=== PATIENT | male | born 1940 | race Two or more races ===

== ENCOUNTER → 2020-03-27 | Outpatient (CLI) | payer MEDICARE, OTHER ==
--- NOTE | 2020-03-27 15:04 | US ---
EXAMINATION TYPE: US scrotum with doppler. Grayscale and color Doppler Duplex imaging performed of luis dudley scrotum. DATE OF EXAM: 03/27/2020 COMPARISON: CLINICAL HISTORY: N40.1 Benign prostatic hyperplasia with lower urin. Right testicle pain that comes and goes. No significant injury. EXAM MEASUREMENTS: TESTICLES: Right Testicle: 5.0 x 3.7 x 2.9 cm Left Testicle: 5.2 x 3.6 x 2.6 cm EPIDIDYMIS HEAD: Right Epididymis: 0.9 x 1.0 x 0.7 cm Left Epididymis: 1.0 x 1.1 x 0.8 cm Doppler performed to assess for testicular vascularity; bilateral color flow and waveforms are seen. Testicular echotexture is homogenous and symmetric Presence of hydroceles: no Presence of varicoceles: left side, distention of the veins is noted on Valsalva IMPRESSION: Left-sided varicocele is mild.
== END | disposition home or self-care (01) ==
LOC: RADUSWWP 14:02
PROVIDERS: ATTEND Family Medicine
DX: I86.1 Scrotal varices (principal); N40.1 Benign prostatic hyperplasia with lower urinary tract symptoms
CPT/HCPCS: 76870; 93975

== ENCOUNTER 2021-05-12 20:14 | Emergency (ER) | payer MEDICARE, OTHER ==
[2021-05-12 20:31] VITALS: BP 134/83; PULSE 58; RESP 16; TEMP 98
--- NOTE | 2021-05-12 21:21 | XR ---
EXAMINATION TYPE: XR hand complete LT DATE OF EXAM: 05/12/2021 COMPARISON: NONE HISTORY: Thumb pain TECHNIQUE: 3 views FINDINGS: There is some narrowing of the IP joint spaces. There is spurring at the first carpometacar pal joint. I see no fracture nor dislocation. There are no erosions. The thumb appears intact. IMPRESSION: There is some osteoarthritis. No fracture seen.
[2021-05-12] MEDS ORDERED: ACET/COD 300 MG/30 MG STARTER PACK 6 TAB BTL PO STA (21:39)
--- NOTE | 2021-05-12 21:39 | ED ---
Upper Extremity HPI - General Chief Complaint: Extremity Injury, Upper Stated Complaint: Thumb Injury Time Seen by Provider: 05/12/21 20:38 Source: patient, RN notes reviewed Mode of arrival: ambulatory Limitations: no limitations - History of Present Illness Initial Comments: 80-year-old male present emergency from chief complaint left thumb pain. Lissett ent states she's been having increasing pain discomfort states that feels like it's popping, snapping at the joint. Patient has no paresthesias no trauma no fevers or chills. - Related Data Home Medications Medication Instructions Recorded Confirmed Ezetimibe [Zetia] 10 mg PO DAILY 04/06/14 04/06/14 Metoprolol Succinate [Toprol XL] 50 mg PO DAILY 04/06/14 04/06/14 Pravastatin Sodium [Pravachol] 40 mg PO DAILY 04/06/14 04/06/14 amLODIPine [Norvasc] 5 mg PO DAILY 04/06/14 04/06/14 Previous Rx's Medication Instructions Recorded Cephalexin [Keflex] 500 mg PO Q6HR #20 cap 04/06/14 Hydrocodone/Acetaminophen [[place] 1 each PO Q6HR PRN #30 tab 04/06/14 5-325] predniSONE 50 mg PO DAILY #5 tab 05/12/21 Allergies Allergy/AdvReac Type Severity Reaction Status Date / Time aspirin AdvReac Unknown Verified 05/12/21 20:30 Review of Systems ROS Statement: Those systems with pertinent positive or pertinent negative responses have been documented in the HPI. ROS Other: All systems not noted in ROS Statement are negative. Past Medical History Past Medical History: Hypertension History of Any Multi-Drug Resistant Organisms: None Reported Past Surgical History: No Surgical Hx Reported Past Psychological History: No Psychological Hx Reported Smoking Status: Never smoker Past Alcohol Use History: None Reported Past Drug Use History: None Reported General Exam Limitations: no limitations General appearance: alert, in no apparent distress Head exam: Present: atraumatic, normocephalic, normal inspection Respiratory exam: Present: normal lung sounds bilaterally. Absent: respiratory distress, wheezes, rales, rhonchi, stridor Cardiovascular Exam: Present: regular rate, normal rhythm, normal heart sounds. Absent: systolic murmur, diastolic murmur, rubs, gallop, clicks Extremities exam: Present: other (Left thumb there is mild tenderness no segmental and erythema neurovascular intact Refill less than 2 seconds some noted popping with joint movement at the interphalangeal joint) Course Vital Signs 05/12/21 20:28 Temperature 98.0 F Pulse Rate 58 L Respiratory 16 Rate Blood Pressure 134/83 O2 Sat by Pulse 98 Oximetry Medical Decision Making - Medical Decision Making X-ray shows evidence of loss arthritis. Patient has left thumb tendinitis, arthritis will follow-up with orthopedics return parameters were discussed. Disposition Clinical Impression: Osteoarthritis of left thumb, Tendinitis of thumb Disposition: HOME SELF-CARE Condition: Stable Instructions (If sedation given, give patient instructions): Arthralgia (ED) Additional Instructions: Please return to the Emergency Department if symptoms worsen or any other concerns. Prescriptions: predniSONE 50 mg PO DAILY #5 tab Is patient prescribed a controlled substance at d/c from ED?: No Referrals: Felipe Marc III, MD [Primary Care Provider] - 1-2 days Gonzalo Dallas DO [Doctor of Osteopathic Medicine] - 1-2 days Time of Disposition: 21:38
== END 2021-05-12 22:01 | disposition home or self-care (01) ==
LOC: EC 20:14
DX: M19.042 Primary osteoarthritis, left hand (principal); M77.9 Enthesopathy, unspecified; I10 Essential (primary) hypertension; Z88.6 Allergy status to analgesic agent; Z79.899 Other long term (current) drug therapy
CPT/HCPCS: 99283

== ENCOUNTER 2022-03-29 10:09 | Emergency (ER) | payer MEDICARE, OTHER ==
[2022-03-29 10:46] VITALS: RESP 18; TEMP 98.2
[2022-03-29 11:31] LABS: Basophils % (A) 0 %; Eosinophils # (A) 0.2 k/uL (0-0.7); Eosinophils % (A) 1 %; HCT 51.4 % (39.0-53.0); Lymphocytes # (A) 0.7 k/uL (1.0-4.8); Lymphocytes % (A) 6 %; MCH 30.9 pg (25.0-35.0); MCHC 33.2 g/dL (31.0-37.0); MCV 93.1 fL (80.0-100.0); Monocytes # (A) 0.6 k/uL (0-1.0); Monocytes % (A) 5 %; Neutrophils # (A) 9.8 k/uL (1.3-7.7); Neutrophils % (A) 87 %; Platelet Count 199 k/uL (150-450); RBC 5.52 m/uL (4.30-5.90); WBC 11.3 k/uL (3.8-10.6)
--- NOTE | 2022-03-29 11:39 | ED ---
General Adult HPI - General Chief complaint: Abdominal Pain Stated complaint: ABD Pain,Kidney stone Time Seen by Provider: 03/29/22 11:07 Source: patient Mode of arrival: ambulatory Limitations: no limitations - History of Present Illness Initial comments: Patient is an 81-year-old male presents the emergency room with complaints of left flank pain and urinary frequency ongoing for approximately 48 hours. He denies any previous kidney stone history. He denies any hematuria or dysuria. He denies any odor. He reports frequency but denies incomplete bladder emptying. He complains of some flushing yesterday but none today. He denies any fevers or chills. He reports nausea with one episode of emesis yesterday and some nausea earlier today but denies any at this time. He denies any episodes of diarrhea. He has a past medical history significant for hypertension, hyperlipidemia, and osteoarthritis. He denies any other complaints or concerns at this time. - Related Data Home Medications Medication Instructions Recorded Confirmed Ezetimibe [Zetia] 10 mg PO DAILY 04/06/14 04/06/14 Metoprolol Succinate [Toprol XL] 50 mg PO DAILY 04/06/14 04/06/14 Pravastatin Sodium [Pravachol] 40 mg PO DAILY 04/06/14 04/06/14 amLODIPine [Norvasc] 5 mg PO DAILY 04/06/14 04/06/14 Previous Rx's Medication Instructions Recorded Cephalexin [Keflex] 500 mg PO Q6HR #20 cap 04/06/14 Hydrocodone/Acetaminophen [[place] 1 each PO Q6HR PRN #30 tab 04/06/14 5-325] predniSONE 50 mg PO DAILY #5 tab 05/12/21 Ciprofloxacin HCl [Cipro] 500 mg PO Q12HR 7 Days #14 tab 03/29/22 Tamsulosin HCl [Flomax] 0.4 mg PO HS 30 Days #30 capsule 03/29/22 Allergies Allergy/AdvReac Type Severity Reaction Status Date / Time aspirin AdvReac Unknown Verified 03/29/22 10:46 Review of Systems ROS Statement: Those systems with pertinent positive or pertinent negative responses have been documented in the HPI. ROS Other: All systems not noted in ROS Statement are negative. Past Medical History Past Medical History: Chest Pain / Angina, Hypertension History of Any Multi-Drug Resistant Organisms: None Reported Past Surgical History: No Surgical Hx Reported Past Psychological History: No Psychological Hx Reported Smoking Status: Never smoker Past Alcohol Use History: None Reported Past Drug Use History: None Reported General Exam Limitations: no limitations Course Vital Signs 03/29/22 10:43 Temperature 98.2 F Pulse Rate 67 Respiratory 18 Rate Blood Pressure 133/77 O2 Sat by Pulse 97 Oximetry Medical Decision Making - Medical Decision Making High probability for renal stone versus pyelonephritis UTI given left flank CVA tenderness along with urinary frequency and nausea symptoms. Will check KUB, CBC, CMP and urinalysis. Denies any analgesic need at this time. KUB negative for acute processes including stone. Lead work reveals leukocytosis and mild acute kidney failure. Patient denies any previous kidney failure. Also requesting medication for pain. In the setting of acute kidney failure will give morphine for pain along with IV fluid bolus and check ultrasound of the kidneys and bladder. Ultrasound the kidneys and bladder show no evidence of hydronephrosis bilateral ureter jets without anomalies and bladder anechoic. Hematuria noted along with leukocytosis will treat for renal stones with Tylenol 3 for pain management. Will start on Flomax for stone and urinary frequency along with Cipro given mild leukocytosis and slight amount of bacteria in urine. Advised need for follow-up with urology. Discussed signs and symptoms of sepsis and obstruction and when to return to the emergency room. - Lab Data Result diagrams: 03/29/22 11:21 03/29/22 11:21 Lab Results 03/29/22 03/29/22 03/29/22 Range/Units 11:21 11:21 11:21 WBC 11.3 H (3.8-10.6) k/uL RBC 5.52 (4.30-5.90) m/uL Hgb 17.0 (13.0-17.5) gm/dL Hct 51.4 (39.0-53.0) % MCV 93.1 (80.0-100.0) fL MCH 30.9 (25.0-35.0) pg MCHC 33.2 (31.0-37.0) g/dL RDW 13.0 (11.5-15.5) % Plt Count 199 (150-450) k/uL MPV 7.0 Neutrophils % 87 % Lymphocytes % 6 % Monocytes % 5 % Eosinophils % 1 % Basophils % 0 % Neutrophils # 9.8 H (1.3-7.7) k/uL Lymphocytes # 0.7 L (1.0-4.8) k/uL Monocytes # 0.6 (0-1.0) k/uL Eosinophils # 0.2 (0-0.7) k/uL Basophils # 0.0 (0-0.2) k/uL Sodium 137 (137-145) mmol/L Potassium 4.7 (3.5-5.1) mmol/L Chloride 103 (98-107) mmol/L Carbon Dioxide 26 (22-30) mmol/L Anion Gap 8 mmol/L BUN 29 H (9-20) mg/dL Creatinine 1.54 H (0.66-1.25) mg/dL Est GFR (CKD-EPI)AfAm 48 (>60 ml/min/1.73 sqM) Est GFR (CKD-EPI)NonAf 42 (>60 ml/min/1.73 sqM) Glucose 124 H (74-99) mg/dL Calcium 9.4 (8.4-10.2) mg/dL Total Bilirubin 1.1 (0.2-1.3) mg/dL AST 21 (17-59) U/L ALT 16 (4-49) U/L Alkaline Phosphatase 76 (38-126) U/L Total Protein 7.1 (6.3-8.2) g/dL Albumin 4.4 (3.5-5.0) g/dL Urine Color Yellow Urine Appearance Clear (Clear) Urine pH 5.0 (5.0-8.0) Ur Specific [place] 1.029 (1.001-1.035) Urine Protein Trace H (Negative) Urine Glucose (UA) Negative (Negative) Urine Ketones 2+ H (Negative) Urine Blood Large H (Negative) Urine Nitrite Negative (Negative) Urine Bilirubin Negative (Negative) Urine Urobilinogen <2.0 (<2.0) mg/dL Ur Leukocyte Esterase Negative (Negative) Urine RBC 178 H (0-5) /hpf Urine WBC 3 (0-5) /hpf Urine Bacteria Rare H (None) /hpf Urine Mucus Rare H (None) /hpf Disposition Clinical Impression: Microscopic hematuria, UTI (urinary tract infection), Acute kidney failure Disposition: HOME SELF-CARE Condition: Stable Instructions (If sedation given, give patient instructions): Hematuria (ED), Urinary Tract Infection in Men (ED), Acute Kidney Injury (DC) Additional Instructions: Please drink plenty of fluids avoiding caffeinated products. Please complete course of antibiotic therapy and take Flomax once daily in the evening. Utilize Tylenol 3 starter pack as needed for pain. Please follow-up with urology for further evaluation and treatment of microscopic hematuria. If difficulty urinating or gross hematuria please return to the emergency room. Please follow- up with your primary care provider. Please return to the Emergency Department if symptoms worsen or any other concerns. Prescriptions: Ciprofloxacin HCl [Cipro] 500 mg PO Q12HR 7 Days #14 tab Tamsulosin HCl [Flomax] 0.4 mg PO HS 30 Days #30 capsule Is patient prescribed a controlled substance at d/c from ED?: No Referrals: Felipe Marc III, MD [Primary Care Provider] - 1-2 days Juve Coles MD [STAFF PHYSICIAN] - 1-2 days Time of Disposition: 14:10
--- NOTE | 2022-03-29 11:45 | XR ---
EXAMINATION TYPE: XR KUB DATE OF EXAM: 03/29/2022 COMPARISON: NONE HISTORY: Pain TECHNIQUE: Single supine KUB image of the abdomen is obtained FINDINGS: Small bowel demonstrates no evidence for dilatation or air fluid levels. Gas and fecal material is seen in non-distended colon. No convincing evidence for pneumoperitoneum. No unusual calcifications. The lung bases are clear. The osseous structures are intact. IMPRESSION: 1. Overall nonobstructive bowel gas pattern.
[2022-03-29 11:50] LABS: Albumin 4.4 g/dL (3.5-5.0); Calcium 9.4 mg/dL (8.4-10.2); Potassium 4.7 mmol/L (3.5-5.1); Total Bilirubin 1.1 mg/dL (0.2-1.3); Total Protein 7.1 g/dL (6.3-8.2)
[2022-03-29 12:11] LABS: Appearance,Urine Clear (Clear); Bacteria,Urine Rare /hpf; Bilirubin,Urine Negative (Negative); Blood,Urine Large (Negative); Color,Urine Yellow; Glucose,Urine (UA) Negative (Negative); Ketones,Urine 2+ (Negative); Leukocyte Esterase,Urine Negative (Negative); Mucus,Urine Rare /hpf; Nitrite,Urine Negative (Negative); Protein,Urine Trace (Negative); RBC,Urine 178 /hpf (0-5); Specific Gravity,Urine 1.029 (1.001-1.035); Urobilinogen,Urine <2.0 mg/dL (<2.0); WBC,Urine 3 /hpf (0-5)
[2022-03-29] MEDS ORDERED: SODIUM CHLORIDE 0.9% 1,000 ML IV STA (12:30)
[2022-03-29] MEDS ORDERED: MORPHINE SULFATE 2 MG/ML SYRINGE IVP STA (12:30)
--- NOTE | 2022-03-29 13:08 | US ---
EXAMINATION TYPE: US renals and bladder DATE OF EXAM: 03/29/2022 COMPARISON: NONE CLINICAL HISTORY: left CVA tenderness and DK. left flank pain EXAM MEASUREMENTS: Right Kidney: 9.9 x 4.8 x 5.5 cm Left Kidney: 13.8 x 4.7 x 7.1 cm Right Kidney: No hydronephrosis or masses seen Left Kidney: No hydronephrosis or masses seen Bladder: wnl Bilateral Jets seen: Yes There is no evidence for hydronephrosis at this point in time. No nephrolithiasis is seen. No brayden s are identified. The urinary bladder is anechoic. Bilateral ureteral jets are seen. IMPRESSION: No discrete abnormality seen.
[2022-03-29] MEDS ORDERED: ACET/COD 300 MG/30 MG STARTER PACK 6 TAB BTL PO STA (14:06)
[2022-03-29 14:21] VITALS: BP 149/84; PULSE 71
== END 2022-03-29 14:31 | disposition home or self-care (01) ==
LOC: EC 10:09
DX: N39.0 Urinary tract infection, site not specified (principal); N17.9 Acute kidney failure, unspecified; I10 Essential (primary) hypertension; Z88.6 Allergy status to analgesic agent
CPT/HCPCS: 36415; 80053; 85025; 81001; 74018; 76770; 99284; 96374; 96361; J2270; 96360

== ENCOUNTER 2022-03-31 12:54 | Emergency (ER) | payer MEDICARE, OTHER ==
--- NOTE | 2022-03-31 14:21 | XR ---
EXAMINATION TYPE: XR abdomen 2V DATE OF EXAM: 03/31/2022 COMPARISON: 03/29/2020 HISTORY: Pain TECHNIQUE: Single supine KUB image of the abdomen is obtained FINDINGS: Small bowel demonstrates no evidence for dilatation or air fluid levels. Gas and fecal material is seen in non-distended colon. Mild right-sided constipation. No convincing evidence for pneumoperitoneum. No unusual calcifications. The lung bases are clear. The osseous structures are intact. IMPRESSION: 1. Overall nonobstructive bowel gas pattern.
--- NOTE | 2022-03-31 15:48 | ED ---
General Adult HPI - General Chief complaint: Abdominal Pain Stated complaint: Constipation Time Seen by Provider: 03/31/22 14:55 Source: patient, RN notes reviewed, old records reviewed Mode of arrival: ambulatory Limitations: no limitations - History of Present Illness Initial comments: This is an 81-year-old male who presents emergency department stating he has not had a bowel movement in one week. Patient comes in because he believes his cath. And he would like some assistance with having a bowel movement. Patient states he was recently seen in the emergency department for hematuria and he has an appointment to follow-up with urology. Patient states he has had no issues urinating. Patient states he feels full but there is no specific abdominal pain per patient denies any back pain. Patient denies chest pain difficulty breathing shortest breath per patient denies any fever chills or cough. - Related Data Home Medications Medication Instructions Recorded Confirmed Ezetimibe [Zetia] 10 mg PO DAILY 04/06/14 04/06/14 Metoprolol Succinate [Toprol XL] 50 mg PO DAILY 04/06/14 04/06/14 Pravastatin Sodium [Pravachol] 40 mg PO DAILY 04/06/14 04/06/14 amLODIPine [Norvasc] 5 mg PO DAILY 04/06/14 04/06/14 Previous Rx's Medication Instructions Recorded Cephalexin [Keflex] 500 mg PO Q6HR #20 cap 04/06/14 Hydrocodone/Acetaminophen [[place] 1 each PO Q6HR PRN #30 tab 04/06/14 5-325] predniSONE 50 mg PO DAILY #5 tab 05/12/21 Ciprofloxacin HCl [Cipro] 500 mg PO Q12HR 7 Days #14 tab 03/29/22 Tamsulosin HCl [Flomax] 0.4 mg PO HS 30 Days #30 capsule 03/29/22 Allergies Allergy/AdvReac Type Severity Reaction Status Date / Time aspirin AdvReac Unknown Verified 03/31/22 13:02 Review of Systems ROS Statement: Those systems with pertinent positive or pertinent negative responses have been documented in the HPI. ROS Other: All systems not noted in ROS Statement are negative. Past Medical History Past Medical History: Chest Pain / Angina, Hypertension History of Any Multi-Drug Resistant Organisms: None Reported Past Surgical History: No Surgical Hx Reported Past Psychological History: No Psychological Hx Reported Smoking Status: Never smoker Past Alcohol Use History: None Reported Past Drug Use History: None Reported General Exam - General Exam Comments Initial Comments: GENERAL: Patient is well-developed and well-nourished. Patient is nontoxic and well- hydrated and is in no acute distress. ENT: Neck is soft and supple. No significant lymphadenopathy is noted. Oropharynx is clear. Moist mucous membranes. Neck has full range of motion without eliciting any pain. EYES: The sclera were anicteric and conjunctiva were pink and moist. Extraocular movements were intact and pupils were equal round and reactive to light. Eyelids were unremarkable. PULMONARY: Unlabored respirations. Good breath sounds bilaterally. No audible rales rhonchi or wheezing was noted. CARDIOVASCULAR: There is a regular rate and rhythm without any murmurs gallops or rubs. ABDOMEN: Abdomen is mildly distended but it is soft and nontender SKIN: Skin is clear with no lesions or rashes and otherwise unremarkable. NEUROLOGIC: Patient is alert and oriented x3. Cranial nerves II through XII are grossly intact. Motor and sensory are also intact. Normal speech, volume and content. Symmetrical smile. MUSCULOSKELETAL: Normal extremities with adequate strength and full range of motion. LYMPHATICS: No significant lymphadenopathy is noted PSYCHIATRIC: Normal psychiatric evaluation. Limitations: no limitations Course Vital Signs 03/31/22 12:59 Temperature 98.2 F Medical Decision Making - Medical Decision Making patient's KUB shows shows some stool. Patient was given an enema with no success. Patient wanted to go home because he is having no abdominal pain or vomiting and he will try mag citrate at home. Disposition Clinical Impression: Constipation Disposition: HOME SELF-CARE Condition: Good Instructions (If sedation given, give patient instructions): Constipation (ED), High Fiber Diet (ED) Additional Instructions: Patient should return to the ER physician any abdominal pain fevers or any new symptoms. Patient should take mag citrate half a bottle wait 8 hours if that is not successful take the remainder of the bottle Is patient prescribed a controlled substance at d/c from ED?: No Referrals: Felipe Marc III, MD [Primary Care Provider] - 1-2 days Time of Disposition: 17:38
[2022-03-31] MEDS ORDERED: MAGNESIUM CITRATE 296 ML BOTTLE PO ONE (17:38)
[2022-03-31 18:20] VITALS: BP 134/86; PULSE 84; RESP 16; TEMP 98.7
== END 2022-03-31 18:20 | disposition home or self-care (01) ==
LOC: EC 12:54
DX: K59.00 Constipation, unspecified (principal); I10 Essential (primary) hypertension; Z88.6 Allergy status to analgesic agent; Z79.899 Other long term (current) drug therapy
CPT/HCPCS: 74019; 99284

== ENCOUNTER → 2022-04-08 | Outpatient (CLI) | payer MEDICARE, OTHER ==
--- NOTE | 2022-04-08 12:07 | CT ---
EXAMINATION TYPE: CT abdomen pelvis wo con DATE OF EXAM: 04/08/2022 COMPARISON: None INDICATION: Microscopic hematuria and left sided flank pain. DLP: 740.5 mGycm, Automated exposure control for dose reduction was used. CONTRAST: 0 mL of Isovue 300. Study performed without Oral Contrast TECHNIQUE: Axial images were obtained from above the diaphragm to the pubic rami in the axial plane a t 5 mm thick sections. Reconstructed images are reviewed on the computer in the coronal plane. FINDINGS: Limited CT sections are obtained the lung bases. There is a large calcified granuloma within the pos terior lateral right lung measuring 1.1 cm. A punctate calcification is in lateral right lung, series [address] ABDOMEN: Liver: Normal Spleen: Scattered calcifications within the spleen could be compatible with granuloma. Pancreas: Normal Adrenal glands: The adrenal glands are normal. Gallbladder: Normal Kidneys: No masses are evident. There is moderate left hydronephrosis and hydroureter. This extends t o the mid ureter and a 0.9 cm obstructing calcification. Series 3 image 84. There is a 0.5 cm nonobst ructing renal stone at the upper pole left kidney. No cysts are present. Delayed images were obtaine d through the kidneys, which remain unremarkable. Aorta: Vascular calcification is within the aorta. Inferior vena cava: Normal. CT PELVIS: Loops of bowel within the abdomen and pelvis are normal. This study is lateral contrast limiting bowel evaluation. Cecum extends towards the right inguinal region. Minimal herniation may be present. Appendix: Not identified. No dilated tubular structure or inflammatory changes evident. Urinary bladder: Normal. Genitourinary structures: There is marked prominence of the prostate measuring 6.9 x 7.1 x 7.9 cm. Osseous structures: No suspicious lytic or sclerotic lesions. IMPRESSIONS: 1. Obstructing 0.9 cm mid left ureteral stone. Moderate hydronephrosis and hydroureter is present 2. Nonobstructing left upper pole renal stone. 3. Marked prominence of the prostate. 4. There may be some minimal right inguinal herniation which may include nonobstructing cecum. 5. Right lung base calcified granuloma granuloma within the spleen.
== END | disposition home or self-care (01) ==
LOC: RADCTMAIN 11:09
PROVIDERS: ATTEND Urology
DX: N13.2 Hydronephrosis with renal and ureteral calculous obstruction (principal); R31.1 Benign essential microscopic hematuria; L92.8 Other granulomatous disorders of the skin and subcutaneous tissue
CPT/HCPCS: 74176

== ENCOUNTER 2022-08-25 08:01 | Day surgery (SDC) | payer MEDICARE, OTHER ==
[2022-08-20 14:51] VITALS: BMI 27.5
[~2022-08-25 08:01] MED LIST: LACTATED RINGERS 1,000 ML IV SCH; LIDOCAINE 1% (10MG/ML) FOR IV START INTRADERMA PRN
[2022-08-25 08:24] VITALS: TEMP 97.5
[2022-08-25] MEDS ORDERED: PROPOFOL 10 MG/ML 20 ML VIAL IV ONE (08:51)
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
[2022-08-25 09:27] VITALS: PULSE 66
--- NOTE | 2022-08-25 09:31 | P.PCN ---
Date of Procedure: 08/25/22 Description of Procedure: PREOPERATIVE DIAGNOSIS: Personal history of colon polyps Family history malignant colon polyps Abnormal stool study POSTOPERATIVE DIAGNOSIS: Tubular adenoma hepatic flexure Tubular adenoma transverse colon Tumor adenoma sigmoid colon Sigmoid diverticulosis, large Internal hemorrhoids, grade 2 OPERATION: Colonoscopy to the ileocecal valve and appendiceal orifice, cecum Colonoscopy with hot snare polypectomy Colonoscopy with cold forceps biopsy SURGEON: Danelle Ray MD. ANESTHESIA: MAC. INDICATIONS: The patient is an 81-year-old male who presents family history of malignant colon polyps and personal history of colon polyps. Last colonoscopy 10 years. Benefits and risks were described and informed consent was obtained. DESCRIPTION OF PROCEDURE: The patient had undergone Sutab prep. The patient had been brought into the operating room and laid in the left lateral decubitus position. After adequate intravenous sedation, the rectum was examined with 2% lidocaine jelly. The prostate was unremarkable. External hemorrhoids were encountered. The rectal tone was within normal limits. No lesions were palpated in the rectal vault. An Olympus colonoscope was advanced until the cecum, ileocecal valve and appendiceal orifice were clearly viewed. The prep was fair. Sigmoid diverticulosis was encountered. Highly redundant sigmoid colon was identified requiring abdominal wall pressure. Colonic polyps were found and removed. No evidence of focal colitis was found. Retroflexion of the scope demonstrated grade 2 internal hemorrhoids without active bleeding or inflammation. The colon was desufflated. The patient had tolerated the procedure well. Withdrawal time was over 6 minutes. FINDINGS: Aronchick preparation quality scale 3 (1-5) Internal hemorrhoids, grade 3 External hemorrhoids, grade 3. 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 RECOMMENDATIONS: Given severity of tubular adenomas, recommend repeat colonoscopy 2 years, 2023 Plan - Discharge Summary New Discharge Prescriptions: Continue Pravastatin Sodium [Pravachol] 40 mg PO HS Metoprolol Succinate [Toprol XL] 50 mg PO HS Ezetimibe [Zetia] 10 mg PO HS amLODIPine [Norvasc] 10 mg PO DAILY Tamsulosin HCl [Flomax] 0.4 mg PO HS 30 Days #30 capsule Acetaminophen Tab [Tylenol] 500 mg PO DAILY PRN PRN Reason: Pain Ibuprofen [Motrin] 400 mg PO Q6HR PRN PRN Reason: Pain Discharge Medication List Ezetimibe [Zetia] 10 mg PO HS 04/06/14 [History] Metoprolol Succinate [Toprol XL] 50 mg PO HS 04/06/14 [History] Pravastatin Sodium [Pravachol] 40 mg PO HS 04/06/14 [History] Tamsulosin HCl [Flomax] 0.4 mg PO HS 30 Days #30 capsule 03/29/22 [Rx] Acetaminophen Tab [Tylenol] 500 mg PO DAILY PRN 08/20/22 [History] Ibuprofen [Motrin] 400 mg PO Q6HR PRN 08/20/22 [History] amLODIPine [Norvasc] 10 mg PO DAILY 08/20/22 [History] Follow up Appointment(s)/Referral(s): Danelle Ray MD [STAFF PHYSICIAN] - As Needed Patient Instructions/Handouts: *Surgery [facility] - (Anesthesia) Endoscopy Discharge Instructions, Diverticulosis (GEN), Colorectal Polyps (GEN), Diverticulosis Diet (GEN) Activity/Diet/Wound Care/Special Instructions: Repeat colonoscopy 2 years, 2023 Discharge Disposition: HOME SELF-CARE
[2022-08-25 09:51] VITALS: BP 135/93; RESP 18
== END 2022-08-25 10:10 | disposition home or self-care (01) ==
LOC: ORWHC2ENDO 08:01
PROVIDERS: ATTEND Surgery Plastic and Reconstructive Surgery
DX: D12.3 Benign neoplasm of transverse colon (principal); D12.5 Benign neoplasm of sigmoid colon; K64.1 Second degree hemorrhoids; K57.30 Diverticulosis of large intestine without perforation or abscess without bleeding; E78.5 Hyperlipidemia, unspecified; I10 Essential (primary) hypertension; N42.9 Disorder of prostate, unspecified; M50.30 Other cervical disc degeneration, unspecified cervical region; G89.29 Other chronic pain; Z90.49 Acquired absence of other specified parts of digestive tract; Z87.891 Personal history of nicotine dependence; Z80.0 Family history of malignant neoplasm of digestive organs; Z80.8 Family history of malignant neoplasm of other organs or systems; Z79.1 Long term (current) use of non-steroidal anti-inflammatories (NSAID); Z79.899 Other long term (current) drug therapy; Z88.6 Allergy status to analgesic agent; Z86.010 Personal history of colon polyps
CPT/HCPCS: 88305; 45380; 45385; J2704

== ENCOUNTER → 2022-09-27 | Outpatient (CLI) | payer MEDICARE ==
--- NOTE | 2022-09-28 08:44 | XR ---
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 Mild to moderate degenera tive disc disease throughout. Vertebral body heights are preserved and alignment is maintained. Prost atic calcifications abdominal aorta. Impression: 1. 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 2. Mild to moderate multilevel degenerative disc disease. 3. No vertebral compression collapse or malalignment.
--- NOTE | 2022-09-28 14:24 | MR ---
EXAMINATION TYPE: MR lumbar spine wo con DATE OF EXAM: 09/27/2022 4:04 PM COMPARISON: Same day radiographs. CLINICAL INDICATION:Male, 82 years old with history of M54.50,M47.816,M43.16; TECHNIQUE: Multi planar, multi sequence imaging was performed utilizing: T1-weighted, T2-weighted, a nd turbo inversion recovery imaging of the lumbar spine. IV Contrast: None. FINDINGS: Alignment: The lumbar vertebral bodies have preserved heights and alignment. Cord: The conus medullaris and the distal spinal cord appear unremarkable with regards to their signa l intensity and morphology. Bones/Discs: Scattered Modic endplate changes with some adjacent bony edema most proximal at the supe rior endplate of L4. Multilevel osteophyte formation Schmorl's nodes and Modic end plate changes are noted again most proximal at L3-L4. Multilevel disc desiccation is present. T12-L1: No evidence of significant spinal canal stenosis or neural foraminal stenosis. L1-L2: No evidence of significant spinal canal stenosis or neural foraminal stenosis. L2-L3: No evidence of significant spinal canal stenosis. Facet joint arthropathy mild bilateral neura l foraminal stenosis. L3-L4: Disc bulge and facet joint arthropathy result in mild spinal canal and moderate bilateral neur al foraminal stenosis. L4-L5: Disc bulge and facet joint arthropathy result in no significant spinal canal and moderate bila teral neural foraminal stenosis. L5-S1: The disc is rounded posterior morphology without significant spinal canal stenosis. Facet join t arthropathy with mild neural foraminal stenosis. Other findings: High T2 signal renal cysts on the left. Atherosclerosis of the arterial vasculature. IMPRESSION: 1. No definitive evidence of disc herniation or significant spinal canal stenosis. 2. Findings suggestive of acute/subacute Schmorl's node in the superior endplate of L4. 3. Multilevel disc degeneration changes throughout the spine worse at L3-L4.
== END | disposition home or self-care (01) ==
LOC: RADMRIMAIN 15:23
PROVIDERS: ATTEND Pain Medicine Interventional Pain Medicine
DX: M47.816 Spondylosis without myelopathy or radiculopathy, lumbar region (principal); M43.16 Spondylolisthesis, lumbar region; M51.36 Other intervertebral disc degeneration, lumbar region; M48.27 Kissing spine, lumbosacral region
CPT/HCPCS: 72110; 72148